=== PATIENT | female | born 1945 | race Two or more races ===

== ENCOUNTER 2018-08-02 05:40 | Day surgery (SDC) | payer OTHER ==
[~2018-08-02 05:40] MED LIST: AVAPRO300 MG PO; LASIX20 MG PO; NORVASC10 MG PO
== END 2018-08-02 11:50 | disposition home or self-care (01) ==
LOC: CIR.AMB 05:40
DX: N39.3 Stress incontinence (female) (male) (principal)
CPT/HCPCS: 57288; C1771